=== PATIENT | male | born 1985 | race Caucasian/White ===

== ENCOUNTER 2017-06-22 15:08 | Emergency (ER) | payer OTHER ==
[~2017-06-22] VITALS: Ht 188 cm; Wt 72.1 kg
[2017-06-22] MEDS ORDERED: ZOLP5 PO (15:25)
[2017-06-22] MEDS ORDERED: Omeprazole20 M1 PO (15:25)
[2017-06-22] MEDS ORDERED: TUMS200 MG PO (15:25)
[2017-06-22] MEDS ORDERED: ALBU90OI INH (15:25)
[2017-06-22] MEDS ORDERED: MIRALAX17 GM PO (15:26)
[2017-06-22] MEDS ORDERED: HYDR25SUP PR (15:45)
== END 2017-06-22 15:49 | disposition home or self-care (01) ==
LOC: ER 15:08
DX: K64.9 Unspecified hemorrhoids (principal)
CPT/HCPCS: 46600; 99284

== ENCOUNTER 2018-05-22 12:35 | Emergency (ER) | payer OTHER ==
[~2018-05-22] VITALS: Ht 180.3 cm; Wt 70.3 kg
[~2018-05-22 12:35] MED LIST: ALBU90OI INH; HEARTBURN RELI150 M1 PO; HYDR25SUP PR; MIRALAX17 GM PO; Omeprazole20 M1 PO; SUMA25 PO; TUMS200 MG PO; ZOLP5 PO
[2018-05-22 13:06] LABS: BASOPHILS ABSOLUTE AUTO 0.03 K/mm3 (0.00-0.23); BASOPHILS PERCENT AUTO 1 % (0-2); EOSINOPHILS ABSOLUTE AUTO 0.14 K/mm3 (0.00-0.68); EOSINOPHILS PERCENT AUTO 3 % (0-6); Hematocrit 46.8 % (37.0-53.0); Hemoglobin 15.3 g/dL (13.5-17.5); IMMATURE GRAN ABSOLUTE AUTO 0.02 K/mm3 (0.00-0.10); IMMATURE GRAN PERCENT AUTO 0 % (0-1); LYMPHOCYTES ABSOLUTE AUTO 1.23 K/mm3 (0.84-5.20); LYMPHOCYTES PERCENT AUTO 27 % (21-46); MONOCYTES ABSOLUTE AUTO 0.32 K/mm3 (0.16-1.47); MONOCYTES PERCENT AUTO 7 % (4-13); Mean Corpuscular HGB 29.6 pg (26.0-34.0); Mean Corpuscular HGB Conc 32.7 g/dL (31.5-36.5); Mean Corpuscular Volume 91 fL (80-100); Mean Platelet Volume 9.3 fL (9.1-12.4); NEUTROPHILS ABSOLUTE AUTO 2.79 K/mm3 (1.96-9.15); NEUTROPHILS PERCENT AUTO 62 % (41-73); Platelet Count 236 K/mm3 (150-400); RDW Coefficient Variation 12.3 % (11.7-14.2); RDW Standard Deviation 40.3 fL (35.1-46.3); Red Blood Cell Count 5.17 M/mm3 (4.30-5.90); White Blood Cell Count 4.53 K/mm3 (4.00-11.30)
[2018-05-22 13:31] LABS: Alanine Aminotransfer (ALT/SGP 19 U/L (12-78); Albumin/Globulin Ratio 1.1 (0.8-1.8); Alk Phos 63 U/L (50-136); Anion Gap 3 mmol/L (6-16); Aspartate Aminotrans (AST/SGOT 9 U/L (12-37); Bilirubin, Total 0.8 mg/dL (0.1-1.0); Blood Urea Nitrogen 10 mg/dL (8-24); Bun/Creatinine Ratio 13.5 (12.0-20.0); CO2, Blood 33 mmol/L (21-32); Calcium, Blood 9.1 mg/dL (8.5-10.1); Chloride, Blood 105 mmol/L (98-108); Creatinine, Blood 0.74 mg/dL (0.60-1.20); Globulin, Blood 3.6 g/dL (2.2-4.0); Glomerular Filtration Rate >60 (60-); Glucose, Blood 74 mg/dL (70-99); Potassium, Blood 3.7 mmol/L (3.5-5.5); Sodium, Blood 141 mmol/L (136-145); Total Protein, Blood 7.6 g/dL (6.4-8.2); Troponin I <0.015 ng/mL (0.000-0.040)
[2018-05-22] MEDS ORDERED: Zantac150 MG PO (15:36)
[2018-05-22] MEDS ORDERED: PANT40 PO (15:36)
[2018-05-22] MEDS ORDERED: BUDE.25 NEB (15:36)
== END 2018-05-22 15:41 | disposition home or self-care (01) ==
LOC: ER 12:35
PROVIDERS: Physician Assistant
DX: R07.9 Chest pain, unspecified (principal); Z88.8 Allergy status to other drugs, medicaments and biological substances; Z87.891 Personal history of nicotine dependence
CPT/HCPCS: 36415; 71046; 80053; 84484; 85025; 93005; 93010; 99285-25

== ENCOUNTER 2018-11-13 20:18 | Emergency (ER) | payer OTHER ==
[~2018-11-13] VITALS: Ht 180.3 cm; Wt 74.8 kg
[~2018-11-13 20:18] MED LIST changes: +BUDE.25 NEB; +PANT40 PO; +Zantac150 MG PO
== END 2018-11-13 20:42 | disposition left against medical advice (07) ==
LOC: ER 20:18
DX: R10.9 Unspecified abdominal pain (principal); Z53.20 Procedure and treatment not carried out because of patient's decision for unspecified reasons
CPT/HCPCS: 99282

== ENCOUNTER 2021-06-25 14:28 | Emergency (ER) | payer OTHER ==
[~2021-06-25] VITALS: Ht 180.3 cm; Wt 66.7 kg
[~2021-06-25 14:28] MED LIST changes: +DOCU100 PO; +FAMO10 PO; +IMITREX50 M1 PO; +Pulmicort Flex90 MCG INH
[2021-06-25 14:53] LABS: BASOPHILS ABSOLUTE AUTO 0.03 K/mm3 (0.00-0.23); BASOPHILS PERCENT AUTO 1 % (0-2); EOSINOPHILS ABSOLUTE AUTO 0.09 K/mm3 (0.00-0.68); EOSINOPHILS PERCENT AUTO 3 % (0-6); Hematocrit 43.7 % (37.0-53.0); Hemoglobin 14.7 g/dL (13.5-17.5); IMMATURE GRAN PERCENT AUTO 0 % (0-1); LYMPHOCYTES ABSOLUTE AUTO 0.93 K/mm3 (0.84-5.20); LYMPHOCYTES PERCENT AUTO 29 % (21-46); MONOCYTES ABSOLUTE AUTO 0.14 K/mm3 (0.16-1.47); MONOCYTES PERCENT AUTO 4 % (4-13); Mean Corpuscular HGB 30.4 pg (26.0-34.0); Mean Corpuscular HGB Conc 33.6 g/dL (31.5-36.5); Mean Corpuscular Volume 91 fL (80-100); Mean Platelet Volume 9.5 fL (9.1-12.4); NEUTROPHILS ABSOLUTE AUTO 2.03 K/mm3 (1.96-9.15); NEUTROPHILS PERCENT AUTO 63 % (41-73); Platelet Count 204 K/mm3 (150-400); RDW Standard Deviation 39.7 fL (35.1-46.3); Red Blood Cell Count 4.83 M/mm3 (4.30-5.90); White Blood Cell Count 3.22 K/mm3 (4.00-11.30)
[2021-06-25 15:08] LABS: Alanine Aminotransfer (ALT/SGP 25 U/L (12-78); Albumin, Blood 3.9 g/dL (3.4-5.0); Albumin/Globulin Ratio 1.3 (0.8-1.8); Alk Phos 62 U/L (50-136); Anion Gap 4 mmol/L (6-16); Aspartate Aminotrans (AST/SGOT 12 U/L (12-37); Blood Urea Nitrogen 7 mg/dL (8-24); Bun/Creatinine Ratio 9.7 (12.0-20.0); CO2, Blood 31 mmol/L (21-32); Chloride, Blood 103 mmol/L (98-108); Creatinine, Blood 0.73 mg/dL (0.60-1.20); Globulin, Blood 3.1 g/dL (2.2-4.0); Glomerular Filtration Rate >60 (60-); Glucose, Blood 241 mg/dL (70-99); Potassium, Blood 3.7 mmol/L (3.5-5.5); Sodium, Blood 138 mmol/L (136-145)
[2021-06-25] MEDS ORDERED: Ventolin/Prove6.7 GM INH (15:13)
[2021-06-25] MEDS ORDERED: Miralax17 GM PO (16:19)
[2021-06-25] MEDS ORDERED: Kristalose20 GM PO (16:34)
== END 2021-06-25 16:41 | disposition home or self-care (01) ==
LOC: ER 14:28
PROVIDERS: Emergency Medicine
DX: K59.00 Constipation, unspecified (principal); F84.0 Autistic disorder; R73.9 Hyperglycemia, unspecified; Z79.899 Other long term (current) drug therapy
CPT/HCPCS: 74018; 80053; 82947; 83690; 84443; 85025; 99284-25; A9270; J7030

== ENCOUNTER 2023-03-22 14:57 | Emergency (ER) | payer OTHER ==
[~2023-03-22] VITALS: Ht 180.3 cm; Wt 65.8 kg
[~2023-03-22 14:57] MED LIST changes: +Kristalose20 GM PO; +Miralax17 GM PO; +Ventolin/Prove6.7 GM INH
[2023-03-22 15:30] LABS: BASOPHILS ABSOLUTE AUTO 0.04 K/mm3 (0.00-0.23); BASOPHILS PERCENT AUTO 1 % (0-2); EOSINOPHILS ABSOLUTE AUTO 0.17 K/mm3 (0.00-0.68); EOSINOPHILS PERCENT AUTO 2 % (0-6); Hematocrit 41.9 % (37.0-53.0); Hemoglobin 14.3 g/dL (13.5-17.5); IMMATURE GRAN ABSOLUTE AUTO 0.02 K/mm3 (0.00-0.10); IMMATURE GRAN PERCENT AUTO 0 % (0-1); LYMPHOCYTES ABSOLUTE AUTO 1.41 K/mm3 (0.84-5.20); LYMPHOCYTES PERCENT AUTO 17 % (21-46); MONOCYTES PERCENT AUTO 6 % (4-13); Mean Corpuscular HGB 30.4 pg (26.0-34.0); Mean Corpuscular HGB Conc 34.1 g/dL (31.5-36.5); Mean Corpuscular Volume 89 fL (80-100); Mean Platelet Volume 9.4 fL (9.1-12.4); NEUTROPHILS PERCENT AUTO 74 % (41-73); Platelet Count 231 K/mm3 (150-400); RDW Coefficient Variation 12.1 % (11.7-14.2); RDW Standard Deviation 39.8 fL (35.1-46.3); White Blood Cell Count 8.24 K/mm3 (4.00-11.30)
[2023-03-22 15:56] LABS: Albumin, Blood 3.9 g/dL (3.4-5.0); Albumin/Globulin Ratio 1.1 (0.8-1.8); Bilirubin, Total 1.1 mg/dL (0.1-1.0); Bun/Creatinine Ratio 6.8 (12.0-20.0); Calcium, Blood 9.1 mg/dL (8.5-10.1); Creatinine, Blood 0.73 mg/dL (0.60-1.20); Globulin, Blood 3.4 g/dL (2.2-4.0); Potassium, Blood 3.5 mmol/L (3.5-5.5); Total Protein, Blood 7.3 g/dL (6.4-8.2)
[2023-03-22 17:34] VITALS: BP 105/85
== END 2023-03-22 17:38 | disposition home or self-care (01) ==
LOC: ER 14:57
PROVIDERS: Physician Assistant
DX: A08.4 Viral intestinal infection, unspecified (principal); Z91.018 Allergy to other foods; Z79.899 Other long term (current) drug therapy
CPT/HCPCS: 74177; 80053; 85025; 99284-25; Q9967

== ENCOUNTER 2024-06-11 07:00 | Day surgery (SDC) | payer OTHER ==
[~2024-06-11] VITALS: Ht 180.3 cm; Wt 63.2 kg
[~2024-06-11 07:00] MED LIST changes: +Lactated Ringer's 1,000 ML IV ONE; +Lidocaine HCl 2% 10 ML SDA ONE
[2024-06-11] MEDS ORDERED: PANT40 PO (07:44)
[2024-06-11] MEDS ORDERED: MELATONIN5 M1 PO (07:45)
[2024-06-11] MEDS ORDERED: GABA300 PO (07:46)
[2024-06-11] MEDS ORDERED: ACET500 PO (07:48)
[2024-06-11] MEDS ORDERED: SUMA6I PO (07:48)
[2024-06-11] MEDS ORDERED: TRAM50 PO (07:49)
[2024-06-11] MEDS ORDERED: CeFAZolin Sodium 2,000 MG VIAL ONE (08:01)
[2024-06-11] MEDS ORDERED: NS 500 ML IV ONE (08:07)
[2024-06-11] MEDS ORDERED: propofoL 40 ML IV ONE (08:28)
[2024-06-11] MEDS ORDERED: Midazolam HCl 1MG / ML 2ML Vial ONE (08:29)
[2024-06-11] MEDS ORDERED: FentaNYL Citrate 50 MCG/ML 2 ML Injection ONE (08:30)
[2024-06-11] MEDS ORDERED: Lactated Ringer's 1,000 ML IV ONE (08:56)
[2024-06-11] MEDS ORDERED: Ondansetron HCl 2 MG / ML 2ML Vial ONE ×2 (09:00→09:37)
[2024-06-11] MEDS ORDERED: Dexamethasone Sod Phos 10 MG/ML 1ML VIAL ONE (09:00)
[2024-06-11] MEDS ORDERED: Ketorolac Tromethamine 30mg Vial ONE (09:01)
--- NOTE | 2024-06-11 09:23 | NUR ---
06/11/24 0923 Kimmy Evans IV INFILTRATED IN OR, DR JOHNSON PLACE NEW IV IN RIGHT FOREARM.
[2024-06-11 09:57] VITALS: BP 113/87
== END 2024-06-11 10:26 | disposition home or self-care (01) ==
LOC: ORSCSDS 07:00
PROVIDERS: Orthopaedic Surgery
PROC: 01N40ZZ Release Ulnar Nerve, Open Approach (ICD-10-PCS; principal; 2024-06-11 08:30)
PROC: 01N54ZZ Release Median Nerve, Percutaneous Endoscopic Approach (ICD-10-PCS; principal; 2024-06-11 08:30)
DX: G56.22 Lesion of ulnar nerve, left upper limb (principal); G56.02 Carpal tunnel syndrome, left upper limb; J45.909 Unspecified asthma, uncomplicated; K21.9 Gastro-esophageal reflux disease without esophagitis; Z79.899 Other long term (current) drug therapy
CPT/HCPCS: J0690; J1100; J1885; J2003; J2250; J2405; J2704; J3010; J7040; J7120

== ENCOUNTER 2024-12-20 10:01 | Day surgery (SDC) | payer OTHER ==
[~2024-12-20] VITALS: Ht 182.9 cm; Wt 63.6 kg
[~2024-12-20 10:01] MED LIST changes: +ACET500 PO; +GABA300 PO; -Lactated Ringer's 1,000 ML IV ONE; -Lidocaine HCl 2% 10 ML SDA ONE; +MELATONIN5 M1 PO; +SUMA6I PO; +TRAM50 PO
[2024-12-20] MEDS ORDERED: CeFAZolin Sodium 2,000 MG VIAL ONE (10:34)
[2024-12-20] MEDS ORDERED: HYDROCODONE-AC1 EA19 PO (10:49)
[2024-12-20] MEDS ORDERED: IBUP200 (10:54)
[2024-12-20] MEDS ORDERED: Lidocaine HCl 2% 10 ML SDA ONE (10:55)
[2024-12-20] MEDS ORDERED: FentaNYL Citrate 50 MCG/ML 2 ML Injection ONE ×2 (11:06→12:25)
[2024-12-20] MEDS ORDERED: Midazolam HCl 1MG / ML 2ML Vial ONE (11:06)
[2024-12-20] MEDS ORDERED: Dexamethasone Sod Phos 10 MG/ML 1ML VIAL ONE (11:15)
[2024-12-20] MEDS ORDERED: Ondansetron HCl 2 MG / ML 2ML Vial ONE ×2 (11:15→12:28)
[2024-12-20 12:36] VITALS: BP 111/89
[2024-12-20] MEDS ORDERED: HYDROcodone 5-APAP 325 TAB ONE (12:53)
== END 2024-12-20 13:35 | disposition home or self-care (01) ==
LOC: ORSCSDS 10:01
PROVIDERS: Orthopaedic Surgery
PROC: 01N40ZZ Release Ulnar Nerve, Open Approach (ICD-10-PCS; principal; 2024-12-20 11:30)
PROC: 01U40KZ Supplement Ulnar Nerve with Nonautologous Tissue Substitute, Open Approach (ICD-10-PCS; principal; 2024-12-20 11:30)
DX: G56.22 Lesion of ulnar nerve, left upper limb (principal); J45.909 Unspecified asthma, uncomplicated; K21.9 Gastro-esophageal reflux disease without esophagitis; F84.0 Autistic disorder; M79.7 Fibromyalgia; Z79.899 Other long term (current) drug therapy
CPT/HCPCS: A9270; C1889; J0690; J1100; J2003; J2250; J2405; J2704; J3010; J7120